=== PATIENT | male | born 1970 | race Two or more races ===

== ENCOUNTER 2024-11-04 14:59 | Inpatient (IN) | payer MEDICAID, OTHER ==
[~2024-11-04] VITALS: Ht 185.4 cm; Wt 100.9 kg
[~2024-11-04 14:59] MED LIST: EMPA1TAB PO; METF-370 PO; SITA100T7 PO
--- NOTE | 2024-11-04 15:51 | DVH ---
CT ABDOMEN AND PELVIS WITHOUT CONTRAST CLINICAL HISTORY: pain left sided TECHNIQUE: Multiple contiguous axial images of the abdomen and pelvis without intravenous contrast. The images were reformatted degenerate coronal and sagittal reconstructions. All CT scans at this medical facility are performed using dose modulation techniques as appropriate t o a performed exam including the following:Automated exposure control was utilized; adjustment of the MA and/or KV according to patient size; and use of iterative reconstruction technique. Radiation Dose Information: CT Dose: CTDI volume is 22 mGy. Dose-length product is 2217 mGy*cm Comparison: None FINDINGS: Evaluation of the abdomen and pelvis is limited without intravenous contrast. There is no evidence of nephrolithiasis or hydronephrosis. There is no evidence of a ureteral calcul us or hydroureter. The liver, gallbladder, pancreas, kidneys, adrenal glands, and spleen appear within normal limits. There is no gross evidence of abdominal lymphadenopathy. There is no free fluid or free air. The stomach grossly appears unremarkable. The small and large bowel loops demonstrate normal caliber . There are scattered diverticula in the colon without evidence of acute diverticulitis. Normal-appe aring appendix is seen in the right lower quadrant abdomen. The abdominal aorta and IVC appear within normal limits. The bladder appears unremarkable for the degree of distention. There is no evidence of a bladder calc ulus. Pelvic organ appears within normal limits. There is no gross evidence of a pelvic mass. There is no free fluid collection. Lung bases are clear. There is no acute osseous abnormality. IMPRESSION: 1. There is no acute process in the abdomen and pelvis. 2. Colonic diverticulosis without evidence of acute diverticulitis. HS:Y
--- NOTE | 2024-11-04 15:52 | DVH ---
EXAM: CT HEAD WITHOUT CONTRAST HISTORY: left sided weakness COMPARISON: None TECHNIQUE: Axial images of the head were obtained and reformatted in coronal and sagittal planes. All CT scans at this medical facility are performed using dose modulation techniques as appropriate t o a performed exam including the following: Automated exposure control was utilized; adjustment of th e MA and/or KV according to patient size; and use of iterative reconstruction technique. CT Dose: CTDI volume is 57 mGy. Dose-length product is 10 40 mGy*cm FINDINGS: There is no evidence of acute intracranial hemorrhage, mass, mass effect midline shift. There is no h ydrocephalus or extra-axial fluid collection. There are small chronic infarcts in the anterior right basal ganglia and in the right thalamic region. The phan-white matter differentiation otherwise appea rs maintained. The visualized paranasal sinuses and mastoid air cells are clear. The calvarium is intact. IMPRESSION: 1. No acute intracranial process. 2. Small chronic infarcts in the right basal ganglia and right thalamic region. HS:Y
--- NOTE | 2024-11-04 15:52 | ED.PDOC ---
HPI (NEURO) HPI Comments 54 Y M with PMHX of CVA, HTN, and HLD presents to the ED with CC of left sided weakness. Patient states, he has been experiencing left sided leg/arm numbness and weakness since 11/02/24 with associated symptoms of LLQ abdominal pain. Patient comments, that he did have a stroke in 2019. Patient states, that the abdominal pain is intermittent and worsens with exertion. Patient denies fever, chills, shortness of breath, chest pain, or N/V/D. Chief Complaint: Left Sided Weakness Time Seen by MD: 15:10 Reviewed Notes: Nurses Notes, Medications, Allergies Information Source: Patient Mode of Arrival: Ambulatory Severity: Mild Headache Severity: None Prehospital treatment: None Weakness Location: (L) Sided, (L) Arm, (L) Leg Numbness Location: (L) Sided, (L) Arm, (L) Leg Onset: With light exertion Symptoms: Weakness History of: CVA, Hypertension Modifying factors: Nothing Associated Signs and Symptoms: Weakness, Numbness Past Medical History PAST MEDICAL HISTORY: Arthritis, CVA, High Lipids, HTN Surgical History: Tonsillectomy Family History Family History: Family hx of DM, Family hx of Cancer Social History Smoker: Cigarettes Alcohol: Occasionally Drugs: Denies Drug Use Lives In: Home Constitutional: denies: chills, diaphoresis, fatigue, fever, malaise, sweats, weakness, others EENTM: denies: blurred vision, double vision, ear bleeding, ear discharge, ear drainage, ear pain, ear ringing, eye pain, eye redness, hearing loss, mouth pain, mouth swelling, nasal discharge, nose bleeding, nose congestion, nose pain, photophobia, tearing, throat pain, throat swelling, voice changes, others Respiratory: denies: cough, hemoptysis, orthopnea, SOB at rest, shortness of breath, SOB with excertion, stridor, wheezing, others Cardiovascular: denies: chest pain, dizzy spells, diaphoresis, Dyspnea on exertion, edema, irregular heart beat, left arm pain, lightheadedness, palpitations, PND, syncope, others Gastrointestinal: reports: abdominal pain; denies: abdomen distended, blood streaked bowels, constipated, diarrhea, dysphagia, difficulty swallowing, hematemesis, melena, nausea, poor appetite, poor fluid intake, rectal bleeding, rectal pain, vomiting, others Genitourinary: denies: burning, dysuria, flank pain, frequency, hematuria, incontinence, penile discharge, penile sore, pain, testicle pain, testicle swelling, urgency, others Neurological: reports: left sided numbness, left sided weakness; denies: d izziness, fainting, headache, numbness, paresthesia, pre-existing deficit, right sided numbness, right sided weakness, seizure, speech problems, tingling, tremors, weakness, others Musculoskeletal: denies: back pain, gout, joint pain, joint swelling, muscle pain, muscle stiffness, neck pain, others Integumetry: denies: bruises, change in color, change in hair/nails, dryness, laceration, lesions, lumps, rash, wounds, others Allergic/Immunocompromised: denies: Difficulty Healing, Frequent Infections, Hives, Itching, others Hematologic/Lymphatic: denies: anemia, blood clots, easy bleeding, easy bruising, swollen glands, others Endocrine: denies: excessive hunger, excessive sweating, excessive thirst, excessive urination, flushing, intolerance to cold, intolerance to heat, unexpl ained weight gain, unexplained weight loss, others Psychiatric: denies: anxiety, bipolar disorder, depression, hopeless, panic disorder, schizophrenia, sleepless, suicidal, others All Other Systems: Reviewed and Negative Physical Exam General Appearance: Moderate Distress HEENT: Normal ENT Inspection, Pharynx Normal, TMs Normal Neck: Full Range of Motion, Non-Tender, Normal, Normal Inspection Respiratory: Chest Non-Tender, Lungs Clear, No Accessory Muscle Use, No Respiratory Distress, Normal Breath Sounds Cardiovascular: No Edema, No JVD, No Murmur, No Gallop, Normal Peripheral Pulses, Regular Rate/Rhythm Breast Exam: Deferred Gastrointestinal: LLQ, LUQ, No Organomegaly, No Pulsatile Mass, Normal Bowel Sounds, Soft, Tenderness Genitalia: Deferred Pelvic: Deferred Rectal: Deferred Extremities: No calf tenderness, Normal capillary refill, Normal inspection, Normal range of motion, Non-tender, No pedal edema Musculoskeletal : Apperance: Normal Neurologic: Alert, custom bookbinder II-XII nml as Tested, Motor Weakness (Left-sided weakness), Normal Affect, Normal Mood Cerebellar Function: Normal Reflexes: Normal Skin: Dry, Normal Color, Warm Lymphatic: No Adenopathy Was a procedure done? Was a procedure done?: No Differential Diagnosis (SZ) Seizure: N/A CVA: Mercedes's Palsy, CVA, TIA X-Ray, Labs, Meds, VS Vital Signs Date Time Temp Pulse Resp B/P (MAP) Pulse Ox O2 Delivery O2 Flow Rate FiO2 11/04/24 17:58 98.3 102 16 147/82 (103) 99 98.3 11/04/24 15:23 96 11/04/24 15:12 97.6 102 14 125/96 (106) 97 Lab Test 11/04/24 15:51 Range/Units White Blood Count 8.1 4.4-10.8 10^3/uL Red Blood Count 5.71 4.5-5.90 10^6/uL Hemoglobin 15.5 13.5-17.5 g/dL Hematocrit 47.2 41.0-53.0 % Mean Corpuscular Volume 82.8 80.0-100.0 fL Mean Corpuscular Hemoglobin 27.2 L 28.0-32.0 pg Mean Corpuscular Hemoglobin Concent 32.9 32.0-36.0 g/dL Red Cell Distribution Width 13.5 11.8-14.3 % Platelet Count 346 140-450 10^3/uL Mean Platelet Volume 8.3 6.9-10.8 fL Neutrophils (%) (Auto) 63.5 37.0-80.0 % Lymphocytes (%) (Auto) 28.5 10.0-50.0 % Monocytes (%) (Auto) 7.4 0.0-12.0 % Eosinophils (%) (Auto) 0.5 0.0-7.0 % Basophils (%) (Auto) 0.1 0.0-2.0 % Neutrophils # (Auto) 5.1 1.6-8.6 10 ^3/uL Lymphocytes # (Auto) 2.3 0.4-5.4 10 ^3/uL Monocytes # (Auto) 0.6 0-1.3 10 ^3/uL Eosinophils # (Auto) 0 0-0.8 10 ^3/uL Basophils # (Auto) 0 0-0.2 10 ^3/uL Nucleated Red Blood Cells 0.1 % Sodium Level 134 L 136-145 mmol/L Potassium Level 3.8 3.5-5.1 mmol/L Chloride Level 100 98-107 mmol/L Carbon Dioxide Level 29 20-31 mmol/L Anion Gap 5 5-15 Blood Urea Nitrogen 9 9-23 mg/dL Creatinine 1.70 H 0.700-1.30 mg/dL Glomerular Filtration Rate Calc 47 >90 mL/min BUN/Creatinine Ratio 5.3 L 10.0-20.0 Serum Glucose 242 H 74-106 mg/dL Calcium Level 9.6 8.7-10.4 mg/dL Total Bilirubin 0.4 0.2-1.0 mg/dL Aspartate Amino Transferase (AST) 13 13-40 U/L Alanine Aminotransferase (ALT) 16 7-40 U/L Alkaline Phosphatase 148 H 46-116 U/L Total Protein 6.7 5.7-8.2 g/dL Albumin 4.2 3.2-4.8 g/dL Lipase 41 12-53 U/L CT ABD PEL: FINDINGS: Evaluation of the abdomen and pelvis is limited without intravenous contrast. There is no evidence of nephrolithiasis or hydronephrosis. There is no evidence of a ureteral calculus or hydroureter. The liver, gallbladder, pancreas, kidneys, adrenal glands, and spleen appear within normal limits. There is no gross evidence of abdominal lymphadenopathy. There is no free fluid or free air. The stomach grossly appears unremarkable. The small and large bowel loops demonstrate normal caliber. There are scattered diverticula in the colon without evidence of acute diverticulitis. Normal-appearing appendix is seen in the right lower quadrant abdomen. The abdominal aorta and IVC appear within normal limits. The bladder appears unremarkable for the degree of distention. There is no evidence of a bladder calculus. Pelvic organ appears within normal limits. There is no gross evidence of a pelvic mass. There is no free fluid collection. Lung bases are clear. There is no acute osseous abnormality. IMPRESSION: 1. There is no acute process in the abdomen and pelvis. 2. Colonic diverticulosis without evidence of acute diverticulitis. HS:Y ATED BY: ROM ASHRAF MD DICTATED DATE/TIME: 11/04/241547 SIGNED BY: ROM ASHRAF MD SIGNED DATE/TIME: 11/04/241547 CC: HEAD CT: FINDINGS: There is no evidence of acute intracranial hemorrhage, mass, mass effect midline shift. There is no hydrocephalus or extra-axial fluid collection. There are small chronic infarcts in the anterior right basal ganglia and in the right thalamic region. The phan-white matter differentiation otherwise appears maintained. The visualized paranasal sinuses and mastoid air cells are clear. The calvarium is intact. IMPRESSION: 1. No acute intracranial process. 2. Small chronic infarcts in the right basal ganglia and right thalamic region. HS:Y ATED BY: ROM ASHRAF MD DICTATED DATE/TIME: 11/04/241548 SIGNED BY: ROM ASHRAF MD SIGNED DATE/TIME: 11/04/241548 CC: At this time, the patient is being admitted to the hospitalist The CBC and the chemistry panel is within normal limits except for hyperglycemia at 242 At this time, the patient was being admitted. Images Reviewed?: Images reviewed and evaluated by me Time of 1ST Reevaluation: 15:40 Reevaluation 1ST: Unchanged Patient Education/Counseling: Diagnosis, Treatment, Prognosis Family Education/Counseling: No Family Present Departure 1 Departure Time of Disposition: 20:14 Impression: Primary Impression: Left-sided weakness Additional Impression: Intractable abdominal pain Disposition: ADMITTED INPATIENT Admit to: Tele Condition: Fair Critical Care Note Critical Care Time?: No Stability Stability form required: Yes Unstable for transfer: ED Physician Assesment (Clinical assesment) Heart Score Heart Score: Heart Score Response (Comments) Value History N/A 0 EKG N/A 0 Age N/A 0 Risk Factors N/A 0 Troponin N/A 0 Total 0 I personally scribed for WOLF SOUSA MD ([email or web address]) on 11/04/24 at 15:52. Electronically submitted by Sindhu Amanda ([email or web address]). I personally scribed for WOLF SOUSA MD ([email or web address]) on 11/04/24 at 16:04. Electronically submitted by Sindhu Amanda ([email or web address]). I personally scribed for WOLF SOUSA MD ([email or web address]) on 11/04/24 at 16:06. Electronically submitted by Sindhu Amanda ([email or web address]). WOLF SOUSA MD Nov 04, 2024 15:52
[2024-11-04 16:16] LABS: Basophils # (auto) 0 10 ^3/uL (0-0.2); Basophils % (auto) 0.1 % (0.0-2.0); Eosinophils # (auto) 0 10 ^3/uL (0-0.8); Eosinophils % (auto) 0.5 % (0.0-7.0); Hematocrit 47.2 % (41.0-53.0); Hemoglobin 15.5 g/dL (13.5-17.5); Lymphocytes # (auto) 2.3 10 ^3/uL (0.4-5.4); Lymphocytes % (auto) 28.5 % (10.0-50.0); Mean Corpuscular Hemoglobin 27.2 pg (28.0-32.0); Mean Corpuscular Hgb Conc. 32.9 g/dL (32.0-36.0); Mean Corpuscular Volume 82.8 fL (80.0-100.0); Monocytes # (auto) 0.6 10 ^3/uL (0-1.3); Monocytes % (auto) 7.4 % (0.0-12.0); Neutrophils # (auto) 5.1 10 ^3/uL (1.6-8.6); Neutrophils % (auto) 63.5 % (37.0-80.0); Nucleated Red Blood Cells % 0.1 %; Platelet Count (auto) 346 10^3/uL (140-450); Red Blood Cells 5.71 10^6/uL (4.5-5.90); Red Cell Distribution Width 13.5 % (11.8-14.3); White Blood Cell 8.1 10^3/uL (4.4-10.8)
[2024-11-04 16:36] LABS: Alanine Aminotransferase 16 U/L (7-40); Albumin 4.2 g/dL (3.2-4.8); Anion Gap 5 (5-15); Aspartate Aminotransferase 13 U/L (13-40); BUN/Creatinine Ratio 5.3 (10.0-20.0); Bilirubin, Total 0.4 mg/dL (0.2-1.0); Calcium 9.6 mg/dL (8.7-10.4); Carbon Dioxide 29 mmol/L (20-31); Chloride 100 mmol/L (98-107); Lipase 41 U/L (12-53); Potassium 3.8 mmol/L (3.5-5.1); Total Protein 6.7 g/dL (5.7-8.2)
[2024-11-04 16:39] LABS: Alkaline Phosphatase 148 U/L (46-116); Blood Urea Nitrogen 9 mg/dL (9-23); Glucose 242 mg/dL (74-106); Sodium 134 mmol/L (136-145)
[2024-11-04] MEDS ORDERED: LISI10TA34 PO (17:41)
[2024-11-04] MEDS ORDERED: GLIP5TAB21 PO (17:41)
[2024-11-04] MEDS ORDERED: ATOR20TA PO (17:41)
--- NOTE | 2024-11-04 19:04 | ECG ---
[facility] Test Date: 2024-11-04 Test Time: 15:23:19 Pat Name: OSIEL BOSS Department: ER Room: 0294T Gender: M [employer] Intern: VILMA : 1970 Requested By: WOLF SOUSA Order Number: [id number] Reading MD: Steve Padilla Measurements Intervals [place] Rate: 96 P: 53 FL: 156 QRS: -18 QRSD: 85 T: 43 QT: 337 QTc: 426 Interpretive Statements Sinus rhythm Probable left atrial enlargement Probable left ventricular hypertrophy Electronically Signed On 11-08-2024 15:39:48 PST by Steve Padilla Please click the below link to view image of tracing.
[2024-11-04] MEDS ORDERED: NITROGLYCERIN 0.4 MG SL TAB SL PRN (22:30)
[2024-11-04] MEDS ORDERED: MORPHINE SULFATE INJ 2 MG/ml SYRG IV PRN (22:30)
[2024-11-04] MEDS ORDERED: DEXTROSE (50%) 50ML SYRG IV PRN (22:30)
--- NOTE | 2024-11-04 22:35 | DVHHPRES ---
History of Present Illness Resident Creating Document: HOLLY DIANE RESIDENT History of Present Illness Patient is 54-year-old male with past medical history of hypertension, diabetes, CVA who came to the hospital with a chief complaint of acute onset of left upper extremity numbness and tingling sensation and associated with left lower extremity numbness and tingling sensation as well. As per patient he started having numbness and tingling sensation approximately 2-3 days ago, not associated with motor weakness, sensation has been getting better however he still feel numb , initially he was not able to recognize the left-sided now he is able to recognize left side of the body however she still numb. Patient also came with a another complaint of left-sided costophrenic angle tenderness, which is reproducible with palpation and with movement. Patient denied any other symptoms chest pain, shortness of breath, fever, chills, abdominal pain, any other symptoms. Past medical history: Hypertension, diabetes mellitus, CVA, knee arthritis Home medication: Patient is noncompliant, not taking any prescribed medication, not on any medication at this point. Past surgical history: None Allergies : None Review of Systems Review of Systems Patient complaining of left-sided numbness and tingling sensation. Eyes: No Pain, No Vision change, No Conjunctivae inflammation, No Eyelid inflammation, No Other, No Redness ENT: No Ear pain, No Ear discharge, No Nose pain, No Nose discharge, No Nose congestion, No Mouth pain, No Mouth swelling, No Throat pain, No Throat swelling, No Other Cardiovascular: No Chest Pain, No Palpitations, No Orthopnea, No Paroxysmal Noc. Dyspnea, No Edema, No Lt Headedness, No Other Respiratory: No Cough, No Dry, No Shortness of breath, No SOB with excertion, No Wheezing, No Hemoptysis, No Pleuritic Pain, No Sputum, No Other Gastrointestinal: No Nausea, No Vomiting, No Abdominal Pain, No Diarrhea, No Constipation, No Melena, No Hematochezia, No Other Genitourinary: No Dysuria, No Frequency, No Incontinence, No Hematuria, No Rete ntion, No Other Musculoskeletal: No other, No neck pain, No shoulder pain, No arm pain, No back pain, No hand pain, No leg pain, No foot pain Skin: No Rash, No Lesions, No Jaundice, No Bruising, No Other Allergies: Coded Allergies: NO KNOWN ALLERGIES (Unverified , 11/04/24) Medications Current Medications Medications Dose Ordered Sig/[place] Route Start Time Stop Time Status Last Admin Dose Admin Nitroglycerin 0.4 mg Q5MINP PRN SL 11/04/24 22:30 UNV Morphine Sulfate 2 mg Q30M PRN IV 11/04/24 22:30 UNV Diagnostic Test (Pha) 1 strip ACHS 11/05/24 07:00 UNV Insulin Human Regular HS SC 11/05/24 22:00 UNV Insulin Human Regular AC SC 11/05/24 07:00 UNV Dextrose 50 ml UD PRN IV 11/04/24 22:30 UNV Aspirin 81 mg DAILY PO 11/05/24 10:00 UNV Clopidogrel Bisulfate 75 mg DAILY PO 11/05/24 10:00 UNV Atorvastatin Calcium 80 mg HS PO 11/05/24 22:00 UNV Exam Vital Signs Vital Signs Date Time Temp Pulse Resp B/P (MAP) Pulse Ox O2 Delivery O2 Flow Rate FiO2 11/04/24 17:58 98.3 102 16 147/82 (103) 99 98.3 Exam General Appearance: Cooperative. Well developed. Well nourished. NAD Head Exam: Normal inspection Neck Exam: Normal inspection. Non-tender. Normal alignment Pulmonary/Respiratory: Chest non-tender. Clear bilateral breath sounds Cardiovascular/Chest: Regular rate and rhythm. No murmurs. No JVD. Peripheral Pulses: 2+ Radial (R). 2+ Radial (L). 2+ Pedal (R). 2+ Pedal (L) Abdominal Exam: Normal bowel sounds. Soft. Nontender. No hepatospenomegaly. No masses Ankle Exam: Negative ankle edema Lower extremities: Negative lower extremity edema Neuro/Mental Status: A&O x4. Coherent Thoughts/Psych: Normal thought pattern. Appropriate mood and affect. Good judgement and insight Appearance: In no acute distress Skin Exam: Normal inspection. Normal color. Warm. Dry Labs/Xrays Labs Test 11/04/24 15:51 Range/Units White Blood Count 8.1 4.4-10.8 10^3/uL Red Blood Count 5.71 4.5-5.90 10^6/uL Hemoglobin 15.5 13.5-17.5 g/dL Hematocrit 47.2 41.0-53.0 % Mean Corpuscular Volume 82.8 80.0-100.0 fL Mean Corpuscular Hemoglobin 27.2 L 28.0-32.0 pg Mean Corpuscular Hemoglobin Concent 32.9 32.0-36.0 g/dL Red Cell Distribution Width 13.5 11.8-14.3 % Platelet Count 346 140-450 10^3/uL Mean Platelet Volume 8.3 6.9-10.8 fL Neutrophils (%) (Auto) 63.5 37.0-80.0 % Lymphocytes (%) (Auto) 28.5 10.0-50.0 % Monocytes (%) (Auto) 7.4 0.0-12.0 % Eosinophils (%) (Auto) 0.5 0.0-7.0 % Basophils (%) (Auto) 0.1 0.0-2.0 % Neutrophils # (Auto) 5.1 1.6-8.6 10 ^3/uL Lymphocytes # (Auto) 2.3 0.4-5.4 10 ^3/uL Monocytes # (Auto) 0.6 0-1.3 10 ^3/uL Eosinophils # (Auto) 0 0-0.8 10 ^3/uL Basophils # (Auto) 0 0-0.2 10 ^3/uL Nucleated Red Blood Cells 0.1 % Sodium Level 134 L 136-145 mmol/L Potassium Level 3.8 3.5-5.1 mmol/L Chloride Level 100 98-107 mmol/L Carbon Dioxide Level 29 20-31 mmol/L Anion Gap 5 5-15 Blood Urea Nitrogen 9 9-23 mg/dL Creatinine 1.70 H 0.700-1.30 mg/dL Glomerular Filtration Rate Calc 47 >90 mL/min BUN/Creatinine Ratio 5.3 L 10.0-20.0 Serum Glucose 242 H 74-106 mg/dL Calcium Level 9.6 8.7-10.4 mg/dL Total Bilirubin 0.4 0.2-1.0 mg/dL Aspartate Amino Transferase (AST) 13 13-40 U/L Alanine Aminotransferase (ALT) 16 7-40 U/L Alkaline Phosphatase 148 H 46-116 U/L Total Protein 6.7 5.7-8.2 g/dL Albumin 4.2 3.2-4.8 g/dL Lipase 41 12-53 U/L Assessment/Plan Assessment/Plan TIA ruled out stroke DEVAN likely hemodynamically mediated Abdominal pain over left upper quadrant/ribs over mid axillary line: Likely musculoskeletal Colonic diverticulosis without diverticulitis Hypertension Diabetes mellitus type 2 History of CVA Plan/recommendation -continue aspirin 81 mg p.o. daily, Lipitor 40 mg p.o. daily. -CT scan of head showed no acute intracranial abnormality , pending MRI brain. -CT abdomen: Colonic diverticulosis without evidence of acute diverticulitis -IV fluid bolus has been given, follow with urine electrolyte -insulin sliding scale for diabetes mellitus -diabetic diet -PUD prophylaxis with Protonix -DVT prophylaxis: Patient is ambulatory Goals of care discussed greater than 22 minutes, full code status. Plan discussed with Dr. Pfeiffer Plan discussed with: Patient (RN) My Orders Orders - HOLLY DIANE RESIDENT Procedure Category Date Status Time Chest Xray 1 View XY 11/04/24 Logged 22:28 Urinalysis LAB 11/04/24 Logged 22:28 Drug Screen LAB 11/04/24 Logged 22:28 Admit ADMIT 11/04/24 Transmitted 22:28 Nitroglycerin PHA 11/04/24 Logged Sublingual (Ntrostat 22:30 Morphine Sulfate PHA 11/04/24 Logged Injection 22:30 Oxygen By Nasal RT 11/04/24 Transmitted Cannula 22:28 Stat Ekg For Chest NIXON 11/04/24 In Process Pain 22:28 Glucose Blood PHA 11/05/24 Logged (Accu-Chek Comfort 07:00 Insulin R (Human) PHA 11/05/24 Logged (Insulin R) 22:00 Insulin R (Human) PHA 11/05/24 Logged (Insulin R) 07:00 Dextrose 50% Syringe PHA 11/04/24 Logged 22:30 Aspirin Tablet PHA 11/04/24 Logged 22:30 Aspirin Tablet PHA 11/05/24 Logged 10:00 Clopidogrel Bisulfate PHA 11/04/24 Logged (Plavix) 22:30 Clopidogrel Bisulfate PHA 11/05/24 Logged (Plavix) 10:00 Atorvastatin (Lipitor) PHA 11/05/24 Logged 22:00 Sodium Chloride 0.9% PHA 11/04/24 Logged 22:30 Rapid Influenza A&B LAB 11/04/24 Logged 22:28 Covid19 Antigen [facility] LAB 11/04/24 Logged Acetaminophen Tablet PHA 11/04/24 Logged (Tylenol Tablet) 22:30 Pantoprazole Tablet PHA 11/04/24 Transmitted (Protonix Tablet) 22:45 Pantoprazole Tablet PHA 11/05/24 Transmitted (Protonix Tablet) 06:00 Date of Service: Nov 04, 2024 Billing Provider: JULIO CESAR PFEIFFER MD Common Visit Codes: [id number] INP/OBS CARE (HIGH) HOLLY DIANE RESIDENT Nov 04, 2024 22:35 JULIO CESAR PFEIFFER MD Nov 05, 2024 11:42
--- NOTE | 2024-11-04 22:50 | DVH ---
CHEST RADIOGRAPH Indication: costophernic angle pain Technique: Single frontal view of the chest was obtained COMPARISON: None FINDINGS: Lines and Tubes: None Lungs: Clear Pleura: No effusion. No pneumothorax. Cardiomediastinal contours: Unremarkable Bones: Unremarkable IMPRESSION: 1. No acute disease.
[2024-11-04] MEDS: CLOPIDOGREL BISULFATE 75 MG TAB PO ONE (23:19)
[2024-11-04] MEDS: ASPirin 81 mg TAB PO ONE (23:29)
[2024-11-04] MEDS: PANTOPRAZOLE 40 MG TAB PO ONE (23:29)
[2024-11-04] MEDS: ACETAMINOPHEN 325 MG TAB PO ONE (23:29)
[2024-11-04] MEDS: SODIUM CHLORIDE 0.9% 500 ML IV ONE (23:29)
[2024-11-05 01:28] LABS: COVID19 ANTIGEN SOFIA FIA NEGATIVE (NEGATIVE); Rapid Influenza A Negative (Negative); Rapid Influenza B Negative (Negative)
[2024-11-05] MEDS: PANTOPRAZOLE 40 MG TAB PO SCH (06:07)
[2024-11-05] MEDS: ACCU-CHEK COMFORT CURVE STRIP VI SCH (06:10)
[2024-11-05] MEDS: InsuLIN REG 1unit/0.01ml Soln (100units/ml) SC SCH ×2 (06:12→22:46)
[2024-11-05 08:14] VITALS: BP 157/99; PULSE 61; RESP 18; TEMP 97.5; O2SAT 100
--- NOTE | 2024-11-05 08:15 | DVH ---
EXAMINATION: MRI BRAIN HEAD WO CONTRAST INDICATION: left upper arm numbness COMPARISON: CT scan of the head dated 11/04/2024 TECHNIQUE: Multiplanar, multisequence magnetic resonance imaging of the brain was performed without the use of i ntravenous contrast. FINDINGS: There is restricted diffusion in the right thalamus consistent with acute infarct. No evidence of ac [place] intracranial hemorrhage. No mass effect. There is periventricular/deep white matter T2/FLAIR hyperintensity is nonspecific, but most commonly associated with chronic microvascular disease. The ventricles and sulci are normal in size for age. Clear basal cisterns. Flow voids in the major intracranial vessels are maintained. No abnormality of the orbits. Paranasal sinuses and mastoid air cells are clear. No abnormality of the visualized osseous structures and extracranial soft tissues. IMPRESSION: 1. Acute infarct in the right thalamus.
[2024-11-05 09:29] LABS: Chloride 101 mmol/L (98-107); Potassium 3.9 mmol/L (3.5-5.1)
[2024-11-05 09:30] VITALS: PULSE 69; RESP 18; O2SAT 99
[2024-11-05 09:30] LABS: Anion Gap 3 (5-15); Carbon Dioxide 29 mmol/L (20-31)
[2024-11-05 09:31] LABS: Calcium 9.6 mg/dL (8.7-10.4)
[2024-11-05 09:36] LABS: BUN/Creatinine Ratio 10.9 (10.0-20.0); Blood Urea Nitrogen 12 mg/dL (9-23)
[2024-11-05 09:43] LABS: Glucose 196 mg/dL (74-106); Sodium 133 mmol/L (136-145)
[2024-11-05] MEDS ORDERED: ASPirin 81 mg TAB PO SCH (10:00)
[2024-11-05] MEDS ORDERED: CLOPIDOGREL BISULFATE 75 MG TAB PO SCH (10:00)
[2024-11-05] MEDS: IOHEXOL 350 MG/ML 100ML IJ ONE (12:14)
[2024-11-05] MEDS: ASPirin 81 mg TAB PO ONE (12:27)
[2024-11-05] MEDS: CLOPIDOGREL BISULFATE 75 MG TAB PO ONE (12:29)
--- NOTE | 2024-11-05 13:05 | DVH ---
INDICATION: STROKE EVAL NECK ARTERIES POSS OCCLUSION COMPARISON: None TECHNIQUE: CTA head without and with intravenous contrast. CTA neck with intravenous contrast. 3D image postprocessing was performed on a dedicated workstation and images were used for interpretation and reporting. Radiation Dose Information: CT Dose: CTDI volume is 82 mGy. Dose-length product is 1615 mGy*cm CONTRAST: Type of contrast: Omni 350 Contrast injected: 100 ml FINDINGS: CT head: There is no evidence of acute intracranial hemorrhage, extra-axial collection, mass effect, midline s hift, herniation or hydrocephalus. The ventricles, sulci and cisterns are age appropriate. There is focal hypodensity in the right thalamus consistent with a lacunar infarct. The visualized paranasal sinuses and mastoid air cells are clear. The surrounding soft tissues and osseous structures are u nremarkable. CTA head: There is normal enhancement of the visualized distal internal carotid, anterior and middle cerebral a rteries. There is a moderate to high-grade stenosis of the proximal right M1 segment. There is a norm al anterior communicating artery complex. There is a dominant left posterior communicating artery. Th ere is a moderate stenosis in the proximal basilar artery. The vertebral, basilar, cerebellar and po sterior cerebral arteries are otherwise within normal limits. The early parenchymal enhancement is g rossly unremarkable. The visualized intracranial venous structures are grossly unremarkable. CTA neck: The visualized thoracic aortic arch and proximal great vessels are unremarkable. The left common, internal and external carotid arteries are within normal limits. The right common, internal and external carotid arteries are within normal limits. The cervical segments of the right and left vertebral arteries are within normal limits. The limited visualized lung apices are clear. The surrounding soft tissues and osseous structures ar e otherwise unremarkable. IMPRESSION: 1. No evidence of acute intracranial hemorrhage, mass effect or hydrocephalus. Right thalamic lacunar infarct. 2. Moderate to high-grade stenosis of the proximal right M1 segment. Moderate stenosis of the proxima l basilar artery. Otherwise intracranial arteries are patent without hemodynamically significant sten osis. 3. No evidence of hemodynamically significant carotid stenosis or dissection. All CT scans at this medical facility are performed using dose modulation techniques as appropriate t o a performed exam including the following: Automated exposure control was utilized; adjustment of th e MA and/or KV according to patient size; and use of iterative reconstruction technique. HS:Y
--- NOTE | 2024-11-05 13:46 | DVHPN2 ---
Subjective 11/05 -patient is seen bedside, communicating well, endorsing that he was able to get out of bed. Able to eat and swallow and tolerate p.o.. 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 He endorses that he has reactions and side effects to his diabetic medications and is not taking any diabetes medications currently. Reviewed: H&P Changes from previous H/P or p: No Changes General: Per HPI Objective Vitals Vital Signs Date Time Temp Pulse Resp B/P (MAP) Pulse Ox O2 Delivery O2 Flow Rate FiO2 11/05/24 09:30 98.0 69 18 133/92 (106) 99 98.0 11/05/24 09:30 Room Air* 0 21 Exam GEN: Healthy appearing, well-developed, NAD. HEENT: NC/AT; MMM. CV: RRR, no m/r/g. LUNGS: CTAB, no w/r/c. ABD: Soft, NT/ND, NBS, no masses or organomegaly. EXT: skin Warm, well perfused. no rashes. No clubbing, cyanosis, or edema. NEURO: Decreased sensation on left shoulder and left arm. Decreased sensation on bilateral lower extremities,. No other FND, cranial nerves intact. Tolerating p.o. and swallowing swallow function intact. Medications Current Medications Medications Dose Ordered Sig/Rio Route Start Time Stop Time Status Last Admin Dose Admin Nitroglycerin 0.4 mg Q5MINP PRN SL 11/04/24 22:30 Morphine Sulfate 2 mg Q30M PRN IV 11/04/24 22:30 Diagnostic Test (Pha) 1 strip ACHS 11/05/24 07:00 11/05/24 12:14 1 STRIP Insulin Human Regular HS SC 11/05/24 22:00 Insulin Human Regular AC SC 11/05/24 07:00 11/05/24 12:30 2 UNITS Dextrose 50 ml UD PRN IV 11/04/24 22:30 Atorvastatin Calcium 80 mg HS PO 11/05/24 22:00 Pantoprazole Sodium 40 mg DAILY@0600 PO 11/05/24 06:00 11/05/24 06:07 40 MG Aspirin 81 mg DAILY PO 11/06/24 10:00 Clopidogrel Bisulfate 75 mg DAILY PO 11/06/24 10:00 Laboratory Results Laboratory Tests 11/04/24 15:51 11/05/24 09:03 Chemistry Test 11/04/24 15:51 11/05/24 09:03 Albumin 4.2 g/dL (3.2-4.8) Calcium Level 9.6 mg/dL (8.7-10.4) 9.6 mg/dL (8.7-10.4) Total Protein 6.7 g/dL (5.7-8.2) Lipid panel Test 11/04/24 15:51 Lipase 41 U/L (12-53) LFT Test 11/04/24 15:51 Alanine Aminotransferase (ALT) 16 U/L (7-40) Alkaline Phosphatase 148 U/L (46-116) H Aspartate Amino Transferase (AST) 13 U/L (13-40) Total Bilirubin 0.4 mg/dL (0.2-1.0) Labs and/or images reviewed: Labs reviewed by me, Image(s) reviewed by me Assessment/Plan Assessment/Plan 11/05 -patient is seen bedside, communicating well, endorsing that he was able to get out of bed. Able to eat and swallow and tolerate p.o.. 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 He endorses that he has reactions and side effects to his diabetic medications and is not taking any diabetes medications currently. # acute stroke, right thalamus: Symptoms onset > [address] head showing right thalamic stroke as old. On MRI brain showing acute right thalamic stroke. CTA head neck showing, again right thalamic lacunar infarct and high- grade stenosis proximal right M1 segment, moderate stenosis proximal basilar artery. Aspirin and Plavix loading dose given, continue daily aspirin and Plavix and His Lipitor. PT eval pending. Echo pending. Q 4 hour neuro checks. Outpatient neurology referral # left flank pain, acute abdomen ruled out: CT abdomen pelvis showing colonic diverticulosis without any acute diverticulitis. Normal abdomen pelvis. No acute process. # DEVAN due to VMN: Admit creatinine 1.7, status post fluids, downtrending # colonic diverticulosis # hypertension - PAS window of permissive hypertension, we will controlled with p.o. home meds. # diabetes type 2 - patient noncompliant due to side effects of orals. We will start low dose home meds at discharge, no p.o. meds while inpatient. Outpatient Endocrinology referral. mild achs SSI for inpatinet. # history of CVA/TIA Diet diabetic DVT - Lovenox daily GI prophylaxis tolerating p.o. Med tele Full code Plan discussed with: Patient My Orders Orders - SERVANDO AVINA MD Procedure Category Date Status Time Pt Request For Service PT 11/05/24 Logged 11:33 Echo 2d Mode Cardiac US 11/05/24 Logged DOP 11:33 Angio Head/Neck CT 11/05/24 Resulted 11:40 Lipid Panel LAB 11/06/24 Verified 04:00 Hemoglobin A1c LAB 11/06/24 Verified 04:00 Comprehensive LAB 11/06/24 Verified Metabolic Panel 04:00 Complete Blood Count LAB 11/06/24 Verified 04:00 Digital Marketing Program Manager ORDERS 11/05/24 Transmitted 11:42 Digital Marketing Program Manager For NIXON 11/05/24 In Process 24 Hours 11:42 Transfer Orders XFER 11/05/24 Transmitted 11:42 Neuro Checks Per Unit ORDERS 11/05/24 Transmitted Protocol 11:43 Neuro Checks Q2hrs NIXON 11/05/24 In Process 11:43 Date of Service: Nov 05, 2024 Billing Provider: SERVANDO AVIAN MD Common Visit Codes: [id number] INP/OBS CARE(HIGH) SERVANDO AVINA MD Nov 05, 2024 13:46
--- NOTE | 2024-11-05 15:24 | DVHSR ---
APPROVED REPORT EXAM: Two-dimensional and M-mode echocardiogram with Doppler, color Doppler and Bubble Study. Blood Pressure: 133/92 mmHg INDICATION Stroke R/O Cardiac thrombi and PFO RISK FACTORS Height: 6' 2", Weight: 220 DIMENSIONS LVDd4.3 (3.8-5.7cm)LA (2D)4.2 (1.9-4.0cm)Aortic Root3.9 (2.0-3.7cm) LVDs3.2 (2.5-4.0cm)LA (MM) (1.9-4.0cm)Aortic Cusp Exc1.8 (1.5-2.0cm) EF (%) 60.0 (55-70%)Rt. Atrium4.3 (1.9-4.0cm)Asc. Aorta cm IVSd1.4 (0.7-1.1cm)RV (D) (1.8-2.4cm) PWd1.6 (0.7-1.1cm) Mitral Valve MitralMitral Stenosis E wave0.70m/sMV Mean GR.mmHg A wave0.90m/sMV Peak GR.mmHg E/A ratio0.82D MVAcm2 Aortic Valve Aortic ValveAortic Stenosis V10.80m/Eitan Mean GR.4mmHg V21.40m/Eitan Peak GR.8mmHg LVOT Diameter2.6 (1.8-2.4cm)Doppler AVA3.03cm2 AI P 1/2 Keza203.45ms Pulmonic Valve V20.60m/s Tricuspid Valve TR Velocity2.20m/s LEFT VENTRICLE The left ventricle is of normal size. Wall thickness is moderately increased. Ejection fraction is normal and is estimated at 60-65%. There is no regional wall motion abnormalities. There is grade I I diastolic dysfunction. E to E prime ratio is in the indeterminate range. RIGHT VENTRICLE The right ventricle is of normal size. Right ventricular systolic function is normal. ATRIA The left atrium is mildly increased in size. The right atrium is of normal size. Intact. No evidence of shunting based on bubble study. MITRAL VALVE Normal structure and function. No significant mitral regurgitation. PULMONIC VALVE Likely normal. TRICUSPID VALVE Normal structure and function. No significant tricuspid regurgitation. PA systolic pressure is not adequately estimated. AORTIC VALVE Normal structure and function. GREAT VESSELS Aortic root measures 3.9 cm at the level of the sinuses of Valsalva. PERICARDIAL EFFUSION No significant pericardial effusion. IVC is not visualized. Conclusion Normal left ventricular size and systolic function. Ejection fraction is estimated at 60-65%. Normal right ventricular size and systolic function. Moderate concentric left ventricular hypertrophy. Grade II diastolic dysfunction. Mildly dilated left atrial chamber size. No hemodynamically significant valvular disease. PA systolic pressure isn't adequately estimated. No evidence of intracardiac shunting based on bubble study. Mildly dilated aortic root measuring 3.9 cm at the level of sinuses of Valsalva.
[2024-11-05 22:00] VITALS: PULSE 72; RESP 20; O2SAT 94
[2024-11-05] MEDS: ATORVASTATIN 20 MG TAB PO SCH (22:46)
[2024-11-05 23:52] LABS: Urine Bacteria None Seen /hpf (None Seen)
[2024-11-06 00:10] LABS: Urine Blood 1+ /uL (Negative); Urine Clarity Clear (Clear); Urine Color Light-Yellow (Yellow); Urine Protein, UAD Negative (Negative); Urine Specific Gravity 1.044 (1.001-1.035); Urine Squamous Epithelial Cell FEW /hpf (<5); Urine Urobilinogen Normal (Negative); Urine WBC <1 /hpf (0 - 3)
[2024-11-06 00:44] LABS: Amphetamine Screen, Urine Neg (NEGATIVE); Barbiturate Scree,Urine Neg (NEGATIVE); Benzodiazephine Screen, Urine Neg (NEGATIVE); Cannabinoid Screen, Urine Neg (NEGATIVE); Cocaine Screen, Urine Neg (NEGATIVE); Opiate Scree,Urine Neg (NEGATIVE); Phencyclidine Screen, Urine Neg (NEGATIVE)
[2024-11-06 05:00] VITALS: BP 133/85; PULSE 76; RESP 19; TEMP 97.6; O2SAT 96
[2024-11-06 07:43] LABS: Basophils # (auto) 0 10 ^3/uL (0-0.2); Basophils % (auto) 0.1 % (0.0-2.0); Eosinophils # (auto) 0.1 10 ^3/uL (0-0.8); Eosinophils % (auto) 0.8 % (0.0-7.0); Hematocrit 43.2 % (41.0-53.0); Hemoglobin 14.5 g/dL (13.5-17.5); Lymphocytes # (auto) 2.5 10 ^3/uL (0.4-5.4); Lymphocytes % (auto) 30.1 % (10.0-50.0); Mean Corpuscular Hemoglobin 27.7 pg (28.0-32.0); Mean Corpuscular Hgb Conc. 33.7 g/dL (32.0-36.0); Mean Corpuscular Volume 82.1 fL (80.0-100.0); Monocytes # (auto) 0.7 10 ^3/uL (0-1.3); Monocytes % (auto) 8.6 % (0.0-12.0); Neutrophils # (auto) 4.9 10 ^3/uL (1.6-8.6); Neutrophils % (auto) 60.4 % (37.0-80.0); Platelet Count (auto) 303 10^3/uL (140-450); Red Blood Cells 5.26 10^6/uL (4.5-5.90); Red Cell Distribution Width 13.2 % (11.8-14.3); White Blood Cell 8.2 10^3/uL (4.4-10.8)
[2024-11-06 08:00] VITALS: PULSE 63; PULSE 64; RESP 18; O2SAT 100
[2024-11-06 08:03] LABS: Alanine Aminotransferase 11 U/L (7-40); Albumin 3.8 g/dL (3.2-4.8); Alkaline Phosphatase 115 U/L (46-116); Anion Gap 7 (5-15); Aspartate Aminotransferase 15 U/L (13-40); BUN/Creatinine Ratio 11.4 (10.0-20.0); Blood Urea Nitrogen 13 mg/dL (9-23); Calcium 9.3 mg/dL (8.7-10.4); Carbon Dioxide 25 mmol/L (20-31); Chloride 102 mmol/L (98-107); Potassium 3.8 mmol/L (3.5-5.1); Triglycerides 129 mg/dL (< 150)
[2024-11-06 08:04] LABS: Bilirubin, Total 0.4 mg/dL (0.2-1.0); Cholesterol 188 mg/dL (< 200); Total Protein 5.8 g/dL (5.7-8.2)
[2024-11-06 08:05] LABS: Glucose 264 mg/dL (74-106); HDL Cholesterol 36 mg/dL (40-59); LDL Cholesterol 143 mg/dL (< 100); Sodium 134 mmol/L (136-145)
[2024-11-06 08:58] VITALS: BP 144/89; PULSE 64; RESP 18; TEMP 98.7; O2SAT 100
[2024-11-06] MEDS: ASPirin 81 mg TAB PO SCH (10:53)
[2024-11-06] MEDS: CLOPIDOGREL BISULFATE 75 MG TAB PO SCH (10:53)
[2024-11-06 13:00] VITALS: BP 148/90; PULSE 68; RESP 20; TEMP 97.9; O2SAT 100
[2024-11-06] MEDS ORDERED: ASPI-498 PO (16:16)
[2024-11-06] MEDS ORDERED: ROSU40TA81 PO (16:16)
[2024-11-06] MEDS ORDERED: METF-489 PO (16:16)
[2024-11-06] MEDS ORDERED: GABA-339 PO (16:16)
[2024-11-06] MEDS ORDERED: SITA100T7 PO (16:16)
[2024-11-06] MEDS ORDERED: EMPA1TAB PO (16:16)
[2024-11-06] MEDS ORDERED: CLOP75TA28 PO (16:16)
[2024-11-06] MEDS ORDERED: LISI10TA34 PO (16:23)
--- NOTE | 2024-11-06 16:29 | DVHDS2 ---
Discharge Summary Date of Admission Nov 04, 2024 at 22:28 Date of Discharge: Nov 06, 2024 Labs/Diagnostic Data: Laboratory Results Test 11/06/24 10:56 11/06/24 06:59 11/05/24 23:39 11/04/24 23:42 POC Glucose 189 mg/dl (70-106) White Blood Count 8.2 10^3/uL (4.4-10.8) Red Blood Count 5.26 10^6/uL (4.5-5.90) Hemoglobin 14.5 g/dL (13.5-17.5) Hematocrit 43.2 % (41.0-53.0) Mean Corpuscular Volume 82.1 fL (80.0-100.0) Mean Corpuscular Hemoglobin 27.7 pg (28.0-32.0) Mean Corpuscular Hemoglobin Concent 33.7 g/dL (32.0-36.0) Red Cell Distribution Width 13.2 % (11.8-14.3) Platelet Count 303 10^3/uL (140-450) Mean Platelet Volume 8.1 fL (6.9-10.8) Neutrophils (%) (Auto) 60.4 % (37.0-80.0) Lymphocytes (%) (Auto) 30.1 % (10.0-50.0) Monocytes (%) (Auto) 8.6 % (0.0-12.0) Eosinophils (%) (Auto) 0.8 % (0.0-7.0) Basophils (%) (Auto) 0.1 % (0.0-2.0) Neutrophils # (Auto) 4.9 10 ^3/uL (1.6-8.6) Lymphocytes # (Auto) 2.5 10 ^3/uL (0.4-5.4) Monocytes # (Auto) 0.7 10 ^3/uL (0-1.3) Eosinophils # (Auto) 0.1 10 ^3/uL (0-0.8) Basophils # (Auto) 0 10 ^3/uL (0-0.2) Nucleated Red Blood Cells 0.0 % Sodium Level 134 mmol/L (136-145) Potassium Level 3.8 mmol/L (3.5-5.1) Chloride Level 102 mmol/L (98-107) Carbon Dioxide Level 25 mmol/L (20-31) Anion Gap 7 (5-15) Blood Urea Nitrogen 13 mg/dL (9-23) Creatinine 1.14 mg/dL (0.700-1.30) Glomerular Filtration Rate Calc 75 mL/min (>90) BUN/Creatinine Ratio 11.4 (10.0-20.0) Serum Glucose 264 mg/dL (74-106) Hemoglobin A1c 12.7 % A1C (<5.7) Calcium Level 9.3 mg/dL (8.7-10.4) Total Bilirubin 0.4 mg/dL (0.2-1.0) Aspartate Amino Transferase (AST) 15 U/L (13-40) Alanine Aminotransferase (ALT) 11 U/L (7-40) Alkaline Phosphatase 115 U/L (46-116) Total Protein 5.8 g/dL (5.7-8.2) Albumin 3.8 g/dL (3.2-4.8) Triglycerides Level 129 mg/dL (< 150) Cholesterol Level 188 mg/dL (< 200) LDL Cholesterol 143 mg/dL (< 100) HDL Cholesterol 36 mg/dL (40-59) Urine Color Light-yellow (Yellow) Urine Clarity Clear (Clear) Urine pH 7.0 (5.0-9.0) Urine Specific [place] 1.044 (1.001-1.035) Urine Protein Negative (Negative) Urine Ketones Negative (Negative) Urine Blood 1+ /uL (Negative) Urine Nitrite Negative (Negative) Urine Bilirubin Negative (Negative) Urine Urobilinogen Normal mg/dL (Negative) Urine Leukocyte Esterase Negative /uL (Negative) Urine RBC 1 /hpf (0 - 3) Urine WBC <1 /hpf (0 - 3) Urine Squamous Epithelial Cells Few /hpf (<5) Urine Bacteria None seen /hpf (None Seen) Urine Glucose 4+ mg/dL (Normal) Urine Opiates Screen Neg (NEGATIVE) Urine Fentanyl Screen Neg (NEGATIVE) Urine Barbiturates Screen Neg (NEGATIVE) Urine Phencyclidine Screen Neg (NEGATIVE) Urine Amphetamines Screen Neg (NEGATIVE) Urine Benzodiazepines Screen Neg (NEGATIVE) Urine Cocaine Screen Neg (NEGATIVE) Urine Cannabinoids Screen Neg (NEGATIVE) Influenza Type A Antigen Negative (Negative) Influenza Type B Antigen Negative (Negative) SARS-CoV-2 Antigen (Rapid) Negative (NEGATIVE) Test 11/04/24 15:51 Lipase 41 U/L (12-53) Other Laboratory Tests 11/06/24 06:59 Brief Hx & Hospital Course: HPI: 54-year-old male with past medical history of hypertension, diabetes, CVA who came to the hospital with a chief complaint of acute onset of left upper extremity numbness and tingling sensation and associated with left lower extremity numbness and tingling sensation as well. As per patient he started having numbness and tingling sensation approximately 2-3 days ago, not associated with motor weakness, sensation has been getting better however he still feel numb , initially he was not able to recognize the left-sided now he is able to recognize left side of the body however she still numb. Patient also came with a another complaint of left-sided costophrenic angle tenderness, which is reproducible with palpation and with movement. Hospital course: Symptoms onset > [address] head showing right thalamic stroke as old. On MRI brain showing acute right thalamic stroke. CTA head neck showing, again right thalamic lacunar infarct and high-grade stenosis proximal right M1 segment, moderate stenosis proximal basilar artery. Aspirin and Plavix loading dose given, continue daily aspirin and Plavix and His Lipitor. Echo shows EF 60-65%, moderate LVH, grade 2 LVEDD, dilated aortic root 3.9 cm at sinus of Valsalva, no intracardiac shunting. PT recommends no home assistive devices, patient independent. Patient had DEVAN which seems to be downtrending. Patient had left flank pain and abdominal pain, improving but CT abdomen done showing no acute abdomen or no acute process but did show colonic diverticulosis without diverticulitis. For hypertension home meds are continued. Diabetes appears to be very poorly controlled with A1c in 12 %. Patient is noncompliant with home medications and is high risk given history of CVA and CVA this visit, patient will need outpatient endocrinology. Discharge diagnosis: Acute stroke, right thalamus; left flank pain/abdominal pain, resolving; acute abdomen ruled out; DEVAN due to VMN, resolving; colonic diverticulosis per imaging; hypertension; poorly-controlled type 2 diabetes with hyperglycemia; history of CVA/TIA; medical noncompliance Discharge plan: --continue Plavix 75 mg daily for 21 days -Continue with low-carbohydrate diet -Continue aspirin 81 mg daily, Crestor 40 mg daily -Refill for Januvia and Jardiance. Refill lisinopril. Please continue taking these medications. -Start gabapentin 300 mg (half tablet), 3 times daily, below -Stop glipizide, stop Lipitor/atorvastatin. -Replace metformin with extended release to decrease side effects. -Referral to endocrinology for poorly controlled diabetes, complicated with noncompliance due to side effects -Referral to neurology for stroke. --Follow up with PCP to discuss discharge review. Visitation and planning required 35 minutes Condition at Discharge: Guarded Final Diagnosis/Problems List Acute stroke, right thalamus; left flank pain/abdominal pain, resolving; acute abdomen ruled out; DEVAN due to VMN, resolving; colonic diverticulosis per imaging; hypertension; poorly-controlled type 2 diabetes with hyperglycemia; history of CVA/TIA; medical noncompliance Discharge Disposition: Home Discharge Statement: "Patient was advised to return to the ER or call 911 if any headaches, dizziness, shortness of breath, chest pain, abdominal pain, bleeding, fevers, or worsening of medical condition. Patient was counseled about treatment plan, medications, possible side effects, patientverbalized understanding. All questions were answered to the best of my ability. This discharge took greater then 30 minutes in planning, reviewing documentation, counseling the patient, and discussing with other team members." ASSESSMENT ASSESSMENT Assessment Acute stroke, right thalamus; left flank pain/abdominal pain, resolving; acute abdomen ruled out; DEVAN due to VMN, resolving; colonic diverticulosis per imaging; hypertension; poorly-controlled type 2 diabetes with hyperglycemia; history of CVA/TIA; medical noncompliance Date of Service: Nov 06, 2024 Billing Provider: SERVANDO AVINA MD Common Visit Codes: [id number]/OBS DISCH DAY >30min SERVANDO AVINA MD Nov 06, 2024 16:29
[2024-11-06 17:00] VITALS: BP 143/90; PULSE 77; RESP 16; TEMP 97.9; O2SAT 94
[2024-11-06 17:08] VITALS: BP 143/90; PULSE 77; RESP 16; TEMP 97.9; O2SAT 94
== END 2024-11-06 17:57 | disposition home or self-care (01) | DRG 45 ==
LOC: ER 15:08 → OVERFLOW 22:28 → TELE-WESTW 11-06 03:22
PROVIDERS: ADMIT Student in an Organized Health Care Education/Training Program; ATTEND Student in an Organized Health Care Education/Training Program
DX: I63.89 Other cerebral infarction (principal); N17.0 Acute kidney failure with tubular necrosis; E11.65 Type 2 diabetes mellitus with hyperglycemia; E78.5 Hyperlipidemia, unspecified; I10 Essential (primary) hypertension; K57.30 Diverticulosis of large intestine without perforation or abscess without bleeding; F17.210 Nicotine dependence, cigarettes, uncomplicated; Z20.822 Contact with and (suspected) exposure to COVID-19; I77.810 Thoracic aortic ectasia; Z83.3 Family history of diabetes mellitus; Z79.82 Long term (current) use of aspirin; Z91.199 Patient's noncompliance with other medical treatment and regimen due to unspecified reason
CPT/HCPCS: 36415; 70450; 70496; 70498; 70551; 71045; 74176; 80048; 80053; 80061; 80307; 81001; 82962; 83036; 83690; 85025; 87426; 87804; 93005; 93306; 97163; G0378; J1815